=== PATIENT | male | born 1950 | race Caucasian/White ===

== ENCOUNTER → 2017-12-08 | Outpatient (CLI) | payer MEDICARE, BC ==
[~2017-12-08] MED LIST: ASPI81TA94 PO; CALC-515 PO; CHOL200022 PO; PRAV10TA46 PO; TACR1CAP13 PO; [UNRECOGNIZED DRUG - CODE] PO
== END ==
LOC: LAB 15:28
PROVIDERS: ATTEND Emergency Medicine
DX: Z12.5 Encounter for screening for malignant neoplasm of prostate (principal)
CPT/HCPCS: 36415; G0103; 84153

== ENCOUNTER → 2017-12-23 | Outpatient (CLI) | payer MEDICARE, BC ==
[~2017-12-23] MED LIST changes: +ROSU10TA5 PO; +VARI50KI IM
[2017-12-23 08:36] LABS: PLATELET COUNT, AUTOMATED 165 K/uL (150-450)
== END ==
LOC: LAB 08:14
PROVIDERS: ATTEND Nurse Practitioner Family
DX: Z48.298 Encounter for aftercare following other organ transplant (principal); Z48.23 Encounter for aftercare following liver transplant; Z94.4 Liver transplant status
CPT/HCPCS: 36415; 80197; 82040; 82247; 82310; 82374; 82435; 82565; 82947; 84075; 84132; 84155; 84295; 84450; 84460; 84520; 85025

== ENCOUNTER → 2017-12-24 | Outpatient (CLI) | payer MEDICARE, BC ==
--- NOTE | 2017-12-24 09:58 | RADIOLOGY IMAGING REPORT ---
FACILITY: PATIENT NAME: Kenneth Pang : 1950 MR: [id number] V: [id number] EXAM DATE: ORDERING PHYSICIAN: LEEANN SAGE TECHNOLOGIST: [place] [facility] [place]: Kenneth Pang : 1950 Visit/Account:[id number] Date of Sevice: 12/24/2017 DEXA Scan Clinical history: History of liver transplant with antirejection drugs. Comparison: None available. LUMBAR SPINE: The bone mineral density (BMD) measured from L1-L4 correlates with a Z-score 2.5 and a T-score of 2.4 which is Normal as defined by the World Health Organization. The corresponding risk of fracture in the lumbar spine is Not increased compared with a young adult reference population. HIP: Bone mineral density (BMD) measured in the Left total hip region correlates with a Z-score -0.2 and a T-score of -0.5 which is Normal as defined by the World Health Organization. The corresponding risk of fracture in the hip is 1-2 times increased compared with a young adult reference population. T score left femoral neck -1 Bone mineral density (BMD) measured in the Femoral Neck region measures 0.944 g/cm2. Impression: 1. Lumbar spine: Normal. 2. Left Hip: Normal. 3. Femoral Neck: Bone Mineral Density is 0.944 g/cm2 The next DEXA scan of this patient should include the following sites: L1-L4 and the left hip. FRAX? WHO Fracture Risk Assessment Tool link: <http://www.shef.ac.uk/FRAX/tool.jsp?locationValue=9> PLEASE NOTE: 1) The World Health Organization defines low BMD as follows: T-score Normal > -1 Osteopenia < -1 and > -2.5 Osteoporosis < -2.5 without fractures Established osteoporosis < -2.5 with fractures 2) In general, you may wish to consider: Diagnosis Treatment Follow-up DEXA Normal BMD Prevention 2-3 years Osteopenia Prevention/therapy 1-2 years Osteoporosis Therapy Yearly 3) Fracture risk estimated from the T-score is more accurate for vertebral fractures (often spontane ous) than for hip fractures. Report Dictated By: Faith Cristobal MD at 12/24/2017 9:52 AM Report E-Signed By: Faith Cristobal MD at 12/24/2017 9:53 AM KULWINDERN:GENI
== END ==
LOC: RAD 02:29
PROVIDERS: ATTEND Emergency Medicine
DX: Z87.891 Personal history of nicotine dependence (principal)
CPT/HCPCS: 77080

== ENCOUNTER → 2018-01-18 | Outpatient (CLI) | payer MEDICARE, BC ==
[~2018-01-18] MED LIST changes: +CALC600T63 PO
[2018-01-18 08:25] LABS: PLATELET COUNT, AUTOMATED 156 K/uL (150-450)
== END ==
LOC: LAB 08:05
PROVIDERS: ATTEND Nurse Practitioner Family
DX: Z48.298 Encounter for aftercare following other organ transplant (principal); Z48.23 Encounter for aftercare following liver transplant; Z94.4 Liver transplant status
CPT/HCPCS: 36415; 80197; 82040; 82247; 82310; 82374; 82435; 82565; 82947; 84075; 84132; 84155; 84295; 84450; 84460; 84520; 85025

== ENCOUNTER 2018-01-26 00:31 | Day surgery (SDC) | payer MEDICARE, BC ==
[~2018-01-26] VITALS: Ht 172.7 cm; Wt 86.6 kg
[2018-01-26] MEDS ORDERED: PROPOFOL EMUL(*) 10MG/ML 20 ML 40 ML ONE (07:12)
[2018-01-26] MEDS ORDERED: NORMOSOL R SOLN(*) 1000 ML BAG 1,000 ML IV PRN (07:50)
[2018-01-26] MEDS ORDERED: LIDOCAINE/SOD BICARB 8.4% SYR ID ONE (07:50)
[2018-01-26 08:48] VITALS: BP 137/89
[2018-01-26] MEDS ORDERED: GLYCOPYRROLATE 0.2MG/ML 1 ML INJ IVP ONE (09:55)
[2018-01-26 10:57] VITALS: BP 105/81
--- NOTE | 2018-01-26 11:05 | Short(Outpt) Discharge Summary ---
Discharge Summary Reason for Hosp/Final Diag: (1) Barretts esophagus Status: Chronic Hospital Course & Plan: EGD with biopsies for Dee's surveillance completed without problems. Departure Discharge to: Home, Self Care Discharge Instructions Home Meds Active Scripts Rosuvastatin Calcium (Rosuvastatin Calcium) 10 Mg Tablet, 0.5 TAB PO DAILY, #90 TAB 3 Refills Prov:LEEANN SAGE MD 12/24/17 Reported Medications Tacrolimus (TACROLIMUS) 0.5 Mg Capsule, 3 CAP PO QPM, CAPSULE 01/18/18 Tacrolimus (TACROLIMUS) 0.5 Mg Capsule, 2 CAP PO QAM, CAPSULE 01/18/18 Calcium Carbonate (CALCIUM) 600 Mg Tablet, 1200 MG PO DAILY 01/04/18 Cholecalciferol (Vitamin D3) (VITAMIN D) 2,000 Unit Tablet, 2000 UNIT PO DAILY 12/08/17 Calcium Carbonate (TUMS) 200 Mg Tab.chew, 200 MG PO PRN, TAB.CHEW 12/08/17 Aspirin (ASPIRIN) 81 Mg Tab.chew, 81 MG PO QDAY, TAB.CHEW 12/08/17 Diet: Regular Activity: As Tolerated Special Instructions: Your upper endoscopy was completed without problems. I don't see any evidence of cancer or progression of your Dee's but, as we discussed, I performed several biopsies of your GE junction. My office will call you in the next week or so and let you know what the biopsies reveal in terms of Dee's regression or dysplasia and when your next EGD should be. Problem Qualifiers (1) Barretts esophagus: Dee's esophagus type: without dysplasia Qualified Codes: K22.70 - Dee's esophagus without dysplasia LUCIANA HURLEY MD Jan 26, 2018 11:05
[2018-01-26 11:15] VITALS: BP 114/76
[2018-01-26 11:30] VITALS: BP 121/87
[2018-01-26 11:44] VITALS: BP 120/88
[2018-01-26 11:46] VITALS: BP 123/88
== END 2018-01-26 12:07 | disposition home or self-care (01) ==
LOC: OR 00:31
PROVIDERS: ATTEND Surgery
DX: K22.70 Barrett's esophagus without dysplasia (principal)
CPT/HCPCS: 43239; 88305; 88313; J2704; J3490

== ENCOUNTER → 2018-02-15 | Outpatient (CLI) | payer MEDICARE, BC ==
[~2018-02-15] MED LIST changes: +CHOL200018 PO; -CHOL200022 PO
[2018-02-15 08:33] LABS: PLATELET COUNT, AUTOMATED 172 K/uL (150-450)
== END ==
LOC: LAB 08:10
PROVIDERS: ATTEND Nurse Practitioner Family
DX: Z48.298 Encounter for aftercare following other organ transplant (principal); Z48.23 Encounter for aftercare following liver transplant; Z94.4 Liver transplant status
CPT/HCPCS: 36415; 80197; 82040; 82247; 82310; 82374; 82435; 82565; 82947; 84075; 84132; 84155; 84295; 84450; 84460; 84520; 85025

== ENCOUNTER → 2018-03-17 | Outpatient (CLI) | payer MEDICARE, BC ==
[~2018-03-17] MED LIST changes: +FLU180SY11 IM
[2018-03-17 08:29] LABS: PLATELET COUNT, AUTOMATED 173 K/uL (150-450)
== END ==
LOC: LAB 08:02
PROVIDERS: ATTEND Nurse Practitioner Family
DX: Z48.23 Encounter for aftercare following liver transplant (principal); Z48.298 Encounter for aftercare following other organ transplant; Z94.4 Liver transplant status
CPT/HCPCS: 36415; 80197; 82040; 82247; 82310; 82374; 82435; 82565; 82947; 84075; 84132; 84155; 84295; 84450; 84460; 84520; 85025

== ENCOUNTER → 2018-04-26 | Outpatient (CLI) | payer MEDICARE, BC ==
[2018-04-26 08:16] LABS: PLATELET COUNT, AUTOMATED 177 K/uL (150-450)
== END ==
LOC: LAB 07:58
PROVIDERS: ATTEND Nurse Practitioner Family
DX: Z48.298 Encounter for aftercare following other organ transplant (principal); Z48.23 Encounter for aftercare following liver transplant; Z94.4 Liver transplant status
CPT/HCPCS: 36415; 80197; 82040; 82247; 82310; 82374; 82435; 82565; 82947; 84075; 84132; 84155; 84295; 84450; 84460; 84520; 85025

== ENCOUNTER → 2018-05-31 | Outpatient (CLI) | payer MEDICARE, BC ==
[2018-05-31 08:51] LABS: PLATELET COUNT, AUTOMATED 170 K/uL (150-450)
== END ==
LOC: LAB 07:52
PROVIDERS: ATTEND Nurse Practitioner Family
DX: Z48.298 Encounter for aftercare following other organ transplant (principal); Z48.23 Encounter for aftercare following liver transplant; Z94.4 Liver transplant status
CPT/HCPCS: 36415; 80197; 82040; 82247; 82310; 82374; 82435; 82565; 82947; 84075; 84132; 84155; 84295; 84450; 84460; 84520; 85025

== ENCOUNTER → 2018-06-23 | Outpatient (CLI) | payer MEDICARE, BC ==
[~2018-06-23] MED LIST changes: +AMOX-362 PO; +IOPAMIDOL 76% 50 ML INFUS BTL 100 ML ONE
--- NOTE | 2018-06-23 09:27 | RADIOLOGY IMAGING REPORT ---
FACILITY: [facility] PATIENT NAME: Kenneth Pang : 1950 MR: [id number] V: [id number] EXAM DATE: ORDERING PHYSICIAN: JOSÉ LUIS SIMMS TECHNOLOGIST: Location: [facility] [place] Patient: Kenneth Pang : 1950 Visit/Account:[id number] Date of Sevice: 06/23/2018 CT ABDOMEN WITH IV CONTRAST CLINICAL INFORMATION: History of liver transplant due to cirrhosis and cancer, evaluate liver for c ancer TECHNIQUE: Axial CT images were obtained through the abdomen during injection of nonionic iodinated intravenous contrast. Reformatted coronal and sagittal images were also obtained.Dose Lowering Techn ique One of the following dose optimization techniques was utilized in the performance of this exam: Autom ated exposure control; adjustment of the mA and/or kV according to the patient's size; or use of an i terative reconstruction technique. Specific details can be referenced in the facility's radiology C T exam operational policy. CONTRAST: 75 mL of Isovue 370 IV contrast. COMPARISON: None available.. FINDINGS: Lower lung pinedo: There is a wedge-shaped area of dense airspace consolidation in the anteromedial r ight lower lobe and in the posterior medial right lower lobe. These may represent areas of chronic a telectasis There is a 2 mm subpleural calcified nodule anterior aspect of the lingula best seen on image 29 seri es 4 and an additional 3 mm subpleural calcified nodule posterior lateral aspect left lower lobe best seen on image 34 and a 2 mm subpleural calcified nodule posterior aspect left lower lobe best seen o n image 76. There is minimal linear stranding in the anterior lingula likely representing scarring o r atelectasis Liver: There are postsurgical changes from a liver transplant. There is no demonstration of hepatic masses. Biliary: Gallbladder surgically absent common bile duct measures up to 9 mm in diameter.. Pancreas: Normal appearance. Spleen: Normal appearance. Adrenal glands: Unremarkable. Kidneys / retroperitoneum: No evidence of nephrolithiasis or hydronephrosis Bowel / peritoneum / mesenteries: The appendix is visualized and does not appear inflamed. There is no evidence of bowel obstruction or bowel wall thickening Lymph node assessment: No pathologic adenopathy identified. Vessels: There are moderate atherosclerotic calcifications of the abdominal aorta and branch vessels. Surgical anastomoses are seen in the inferior vena cava just below the liver and at the right hemid iaphragm. atherosclerotic calcification seen throughout a nonaneurysmal abdominal aorta and branches. Musculoskeletal / Body wall: There moderate spondylotic changes of the visualized thoracolumbar spine IMPRESSION: 1. There postsurgical changes from a liver transplant however no focal hepatic masses are seen Common bile duct measures up to 9 mm in diameter although is likely related to surgical absence of th e gallbladder Wedge-shaped areas of dense airspace consolidation in the anteromedial right lower lobe and posterior medial right lower lobe may represent areas of chronic atelectasis. Minimal linear stranding in the anterior lingula also likely related to scarring versus atelectasis Calcified granulomas in the lung bases Moderate atherosclerotic calcifications in the abdominal aorta and branch vessels Report Dictated By: Faith Cristobal MD at 06/23/2018 8:50 AM Report E-Signed By: Faith Cristobal MD at 06/23/2018 9:24 AM WSN:[email or web address]
== END ==
LOC: CT 01:19
PROVIDERS: ATTEND Nurse Practitioner Family
DX: Z08 Encounter for follow-up examination after completed treatment for malignant neoplasm (principal); Z94.4 Liver transplant status; R91.8 Other nonspecific abnormal finding of lung field; I25.10 Atherosclerotic heart disease of native coronary artery without angina pectoris
CPT/HCPCS: 74160; Q9967

== ENCOUNTER → 2018-07-07 | Outpatient (CLI) | payer MEDICARE, BC ==
[~2018-07-07] MED LIST changes: -IOPAMIDOL 76% 50 ML INFUS BTL 100 ML ONE
--- NOTE | 2018-07-07 16:49 | RADIOLOGY IMAGING REPORT ---
FACILITY: [facility] [place] PATIENT NAME: Kenneth Pang : 1950 MR: [id number] V: [id number] EXAM DATE: ORDERING PHYSICIAN: JOSÉ LUIS SIMMS TECHNOLOGIST: Location: [facility] Patient: Kenneth Pang : 1950 Visit/Account:[id number] Date of Sevice: 07/07/2018 CT CHEST W/O CONTRAST HISTORY: Lung granulomas, history of liver transplant TECHNIQUE: CT chest without intravenous contrast. Contiguous helical images was performed from the l devora apices to below the diaphragm. One of the following dose optimization techniques was utilized in the performance of this exam: Autom ated exposure control; adjustment of the mA and/or kV according to the patient's size; or use of an i terative reconstruction technique. Specific details can be referenced in the facility's radiology C T exam operational policy. CONTRAST: None. COMPARISON: CT abdomen 06/23/2017 FINDINGS: Heart/vessels: There is a small ascending thoracic aneurysm measuring 4.2 cm maximally. Calcificatio n of the thoracic aorta, coronary vessels and aortic valve is noted. Mediastinum: Negative. Lymph nodes: Negative. Lungs/pleura: Right hemidiaphragm is elevated. There are scattered calcified granulomas in both lung s which are benign. Within this setting there are a few small noncalcified micronodules. 1 mm left upper lobe micronodules noted image 98 5 mm micronodule left upper lobe image 150 1 mm right middle lobe micronodule image 161. Atelectasis at the right lung base is stable. Visualized upper abdomen: Postoperative changes are noted from liver transplant. Bones/soft tissues: Degenerative changes are noted the spine. IMPRESSION: 1. Scattered calcified benign granulomas in both lungs. Within this setting, there are a few small n oncalcified micronodules the largest measuring 5 mm in the left upper lobe. 2. Postoperative changes are noted from liver transplant. Right hemidiaphragm is elevated. 3. Small ascending thoracic aortic aneurysm measuring 4.2 cm maximally. Report Dictated By: Dino Berry MD at 07/07/2018 4:34 PM Report E-Signed By: Dino Berry MD at 07/07/2018 4:45 PM WSN:[email or web address]
== END ==
LOC: CT 07:13
PROVIDERS: ATTEND Nurse Practitioner Family
DX: I71.4 Abdominal aortic aneurysm, without rupture (principal); R91.8 Other nonspecific abnormal finding of lung field; Z94.4 Liver transplant status
CPT/HCPCS: 71250

== ENCOUNTER → 2018-07-08 | Outpatient (CLI) | payer MEDICARE, BC | LOC: LAB 07:55 | PROVIDERS: ATTEND Nurse Practitioner Family | DX: Z48.298 Encounter for aftercare following other organ transplant (principal); Z48.23 Encounter for aftercare following liver transplant; Z94.4 Liver transplant status | CPT/HCPCS: 80197 ==

== ENCOUNTER → 2018-07-08 | Outpatient (CLI) | payer MEDICARE, BC ==
[2018-07-08 08:13] LABS: PLATELET COUNT, AUTOMATED 170 K/uL (150-450)
[2018-07-08 08:56] LABS: LDL CHOLESTEROL 66 mg/dl
== END ==
LOC: LAB 07:54
PROVIDERS: ATTEND Emergency Medicine
DX: E78.5 Hyperlipidemia, unspecified (principal); Z94.4 Liver transplant status; E55.9 Vitamin D deficiency, unspecified
CPT/HCPCS: 36415; 82040; 82247; 82306; 82310; 82374; 82435; 82465; 82565; 82947; 83718; 84075; 84132; 84155; 84295; 84450; 84460; 84478; 84520; 85025

== ENCOUNTER → 2018-07-22 | Outpatient (CLI) | payer MEDICARE, BC | LOC: US 01:02 | PROVIDERS: ATTEND Emergency Medicine | DX: I34.0 Nonrheumatic mitral (valve) insufficiency (principal); I07.1 Rheumatic tricuspid insufficiency; I37.1 Nonrheumatic pulmonary valve insufficiency | CPT/HCPCS: 93306 ==

== ENCOUNTER → 2018-08-03 | Outpatient (CLI) | payer MEDICARE, BC ==
[2018-08-03 09:01] LABS: PLATELET COUNT, AUTOMATED 173 K/uL (150-450)
== END ==
LOC: LAB 08:02
PROVIDERS: ATTEND Nurse Practitioner Family
DX: Z48.23 Encounter for aftercare following liver transplant (principal); Z48.298 Encounter for aftercare following other organ transplant; Z94.4 Liver transplant status
CPT/HCPCS: 36415; 80197; 82040; 82247; 82310; 82374; 82435; 82565; 82947; 84075; 84132; 84155; 84295; 84450; 84460; 84520; 85025

== ENCOUNTER → 2018-09-29 | Outpatient (CLI) | payer MEDICARE, BC ==
[2018-09-29 08:10] LABS: PLATELET COUNT, AUTOMATED 200 K/uL (150-450)
== END ==
LOC: LAB 07:58
PROVIDERS: ATTEND Nurse Practitioner Family
DX: Z48.298 Encounter for aftercare following other organ transplant (principal); Z48.23 Encounter for aftercare following liver transplant; Z94.4 Liver transplant status
CPT/HCPCS: 36415; 80197; 82040; 82247; 82310; 82374; 82435; 82565; 82947; 84075; 84132; 84155; 84295; 84450; 84460; 84520; 85025

== ENCOUNTER → 2018-11-04 | Outpatient (CLI) | payer MEDICARE, BC | LOC: LAB 14:26 | PROVIDERS: ATTEND Nurse Practitioner | DX: C44.42 Squamous cell carcinoma of skin of scalp and neck (principal) | CPT/HCPCS: 88305 ==

== ENCOUNTER → 2018-11-16 | Outpatient (CLI) | payer MEDICARE, BC ==
[~2018-11-16] MED LIST changes: +LIDO1ADH TP
[2018-11-16 10:24] LABS: PLATELET COUNT, AUTOMATED 178 K/uL (150-450)
== END ==
LOC: LAB 10:02
PROVIDERS: ATTEND Emergency Medicine
DX: M54.9 Dorsalgia, unspecified (principal)
CPT/HCPCS: 36415; 81001; 82040; 82247; 82310; 82374; 82435; 82565; 82947; 84075; 84132; 84155; 84295; 84450; 84460; 84520; 85025; 86140

== ENCOUNTER → 2018-11-23 | Outpatient (CLI) | payer MEDICARE, BC ==
[~2018-11-23] MED LIST changes: +LIDODERM 5%
[2018-11-23 08:14] LABS: PLATELET COUNT, AUTOMATED 159 K/uL (150-450)
== END ==
LOC: LAB 07:53
PROVIDERS: ATTEND Nurse Practitioner Family
DX: Z48.298 Encounter for aftercare following other organ transplant (principal); Z48.23 Encounter for aftercare following liver transplant; Z94.4 Liver transplant status
CPT/HCPCS: 36415; 80197; 82040; 82247; 82310; 82374; 82435; 82565; 82947; 84075; 84132; 84155; 84295; 84450; 84460; 84520; 85025

== ENCOUNTER → 2018-12-29 | Outpatient (CLI) | payer MEDICARE, BC ==
[2018-12-29 08:40] LABS: PLATELET COUNT, AUTOMATED 182 K/uL (150-450)
== END ==
LOC: LAB 07:59
PROVIDERS: ATTEND Nurse Practitioner Family
DX: Z48.298 Encounter for aftercare following other organ transplant (principal); Z48.23 Encounter for aftercare following liver transplant; Z94.4 Liver transplant status
CPT/HCPCS: 36415; 80197; 82040; 82247; 82310; 82374; 82435; 82565; 82947; 84075; 84132; 84155; 84295; 84450; 84460; 84520; 85025

== ENCOUNTER → 2019-01-10 | Outpatient (CLI) | payer MEDICARE, BC ==
[~2019-01-10] MED LIST changes: +OXYC-373 PO
--- NOTE | 2019-01-10 14:08 | RADIOLOGY IMAGING REPORT ---
FACILITY: [facility] PATIENT NAME: Kenneth Pang : 1950 MR: [id number] V: [id number] EXAM DATE: ORDERING PHYSICIAN: LEEANN SAGE TECHNOLOGIST: Location: [facility] [place] Patient: Kenneth Pang : 1950 Visit/Account:[id number] Date of Sevice: 01/10/2019 Exam type: HIP LEFT History: Left hip pain after doing yard work last week Comparison: None. Findings: There are mild degenerative changes involving the left hip joint. Similar changes are identified in the right hip as well. Extensive spondylotic changes are seen in the visualized lower lumbar spine. Extensive vascular calcifications are noted in the pelvis and both inguinal regions IMPRESSION: Mild degenerative changes of the hip joints Extensive spondylotic changes lower lumbar spine Extensive vascular calcifications Report Dictated By: Faith Cristobal MD at 01/10/2019 1:58 PM Report E-Signed By: Faith Cristobal MD at 01/10/2019 1:59 PM WSN:[email or web address]
== END ==
LOC: RAD 13:05
PROVIDERS: ATTEND Emergency Medicine
DX: M16.0 Bilateral primary osteoarthritis of hip (principal); M43.06 Spondylolysis, lumbar region